=== PATIENT | female | born 1975 | race Caucasian/White ===

== ENCOUNTER 2018-11-17 10:30 | Inpatient (IN) | payer MEDICAID ==
[2018-11-17] MEDS: LACTATED RINGER'S 1,000 ML IV ×2 (11:33→19:49)
[2018-11-17 11:54] LABS: ADD MAN DIFF? NO
[2018-11-17 11:57] LABS: BASOPHILS % 0.4 % (0.0-2.0); EOSINOPHILS # 0.1 10^3/ul (0.0-0.5); EOSINOPHILS % 1.5 % (0.0-7.0); HEMOGLOBIN 12.5 g/dl (12.0-16.0); LYMPHOCYTES # 1.5 10^3/ul (0.8-2.9); LYMPHOCYTES % 19.6 % (15.0-51.0); MEAN CORPUSCULAR HEMOGLOBIN 30.5 pg (29.0-33.0); MEAN CORPUSCULAR HGB CONC 33.8 g/dl (32.0-37.0); MEAN CORPUSCULAR VOLUME 90.2 fl (82.0-101.0); MEAN PLATELET VOLUME 9.1 fl (7.4-10.4); MONOCYTE # 0.5 10^3/ul (0.3-0.9); MONOCYTES % 5.8 % (0.0-11.0); NEUTROPHIL # 5.6 10^3/ul (1.6-7.5); NEUTROPHILS % 72.2 % (39.0-77.0); PLATELET COUNT 293 10^3/UL (140-415); RED CELL DISTRIBUTION WIDTH 13.8 % (11.5-14.5)
[2018-11-17 11:57] LABS: WHITE BLOOD COUNT 7.8 10^3/ul (4.8-10.8)
[2018-11-17 12:00] LABS: ADD UMIC YES; UR ASCORBIC ACID NEGATIVE (NEGATIVE); UR BILIRUBIN (Dip) NEGATIVE (NEGATIVE); UR BLOOD (Dip) 1+ mg/dL (NEGATIVE); UR CLARITY CLEAR (CLEAR); UR COLOR YELLOW (YELLOW); UR GLUCOSE (Dip) NEGATIVE (NEGATIVE); UR KETONES (Dip) NEGATIVE (NEGATIVE); UR LEUKOCYTE ESTERASE (Dip) NEGATIVE Leu/ul (NEGATIVE); UR NITRITE (Dip) NEGATIVE (NEGATIVE); UR RBC 1 /HPF (0-5); UR SPECIFIC GRAVITY (Dip) 1.018 (1.003-1.030); UR TOTAL PROTEIN (Dip) NEGATIVE (NEGATIVE); UR UROBILINOGEN (Dip) NEGATIVE (NEGATIVE); UR WBC 1 /HPF (0-5)
[2018-11-17] MEDS: MAGNESIUM SULFATE 4 GM/100 ML 100 ML IV (12:05)
[2018-11-17 12:17] LABS: ALANINE AMINOTRANSFERASE 18 IU/L (13-69); ALBUMIN 3.4 g/dl (3.3-4.9); ALKALINE PHOSPHATASE 75 IU/L (42-121); ANION GAP 7 (5-13); ASPARTATE AMINO TRANSFERASE 17 IU/L (15-46); BILIRUBIN,INDIRECT 0.3 mg/dl (0-1.1); BILIRUBIN,TOTAL 0.3 mg/dl (0.2-1.3); BLOOD UREA NITROGEN 9 mg/dl (7-20); CALCIUM 8.6 mg/dl (8.4-10.2); CARBON DIOXIDE 21 mmol/L (21-31); CHLORIDE 109 mmol/L (97-110); CREATININE 0.38 mg/dl (0.44-1.00); Estimated GFR > 60 mL/min (>60); GLUCOSE 85 mg/dl (70-220); POTASSIUM 4.2 mmol/L (3.5-5.1); SODIUM 137 mmol/L (135-144); TOTAL PROTEIN 6.8 g/dl (6.1-8.1); URIC ACID 3.8 mg/dl (3.1-7.9)
[2018-11-17] MEDS: MAGNESIUM SULFATE 20 GM/500 ML 500 ML IV ×2 (12:26→22:31)
[2018-11-17] MEDS: BETAMET NA PHOS/AC(6 MG/ML) 2 ML INJ SYG IM (12:27)
[2018-11-17] MEDS: LABETALOL HCL 20MG INJ IV (12:43)
[2018-11-17 12:56] LABS: INR 0.96; PROTIME 12.9 Sec (11.9-14.9)
[2018-11-17 12:57] LABS: PARTIAL THROMBOPLASTIN TIME 29.4 Sec (23.0-35.0)
[2018-11-17] MEDS ORDERED: LABETALOL HCL 20MG INJ IV ×2 (13:00)
[2018-11-17] MEDS ORDERED: hydrALAzine 20 MG INJ IV (13:00)
[2018-11-17 19:38] LABS: MAGNESIUM 5.2 mg/dl (1.7-2.5)
[2018-11-17] MEDS: INDOMETHACIN 50 MG PO (19:47)
[2018-11-17] MEDS: ACETAMINOPHEN 500 MG TAB PO (20:43)
[2018-11-17] MEDS: LABETALOL 100 MG TAB PO (21:01)
[2018-11-17] MEDS: INDOMETHACIN 25 MG PO (23:59)
[2018-11-18] MEDS: INDOMETHACIN 25 MG PO ×4 (05:51→23:35)
[2018-11-18 05:56] LABS: ADD MAN DIFF? NO
[2018-11-18 06:00] LABS: BASOPHILS % 0.2 % (0.0-2.0); HEMATOCRIT 34.9 % (37.0-47.0); HEMOGLOBIN 11.8 g/dl (12.0-16.0); LYMPHOCYTES # 1.3 10^3/ul (0.8-2.9); LYMPHOCYTES % 13.6 % (15.0-51.0); MEAN CORPUSCULAR HEMOGLOBIN 30.5 pg (29.0-33.0); MEAN CORPUSCULAR HGB CONC 33.8 g/dl (32.0-37.0); MEAN CORPUSCULAR VOLUME 90.2 fl (82.0-101.0); MONOCYTE # 0.5 10^3/ul (0.3-0.9); MONOCYTES % 4.9 % (0.0-11.0); NEUTROPHIL # 7.5 10^3/ul (1.6-7.5); NEUTROPHILS % 80.4 % (39.0-77.0); PLATELET COUNT 280 10^3/UL (140-415); RED BLOOD COUNT 3.87 10^6/ul (4.20-5.40); RED CELL DISTRIBUTION WIDTH 13.8 % (11.5-14.5)
[2018-11-18 06:00] LABS: WHITE BLOOD COUNT 9.3 10^3/ul (4.8-10.8)
[2018-11-18 06:28] LABS: ALANINE AMINOTRANSFERASE 15 IU/L (13-69); ALBUMIN 3.4 g/dl (3.3-4.9); ALBUMIN/GLOBULIN RATIO 1.13; ALKALINE PHOSPHATASE 84 IU/L (42-121); ANION GAP 8 (5-13); ASPARTATE AMINO TRANSFERASE 19 IU/L (15-46); BILIRUBIN,INDIRECT 0.4 mg/dl (0-1.1); BILIRUBIN,TOTAL 0.4 mg/dl (0.2-1.3); BLOOD UREA NITROGEN 8 mg/dl (7-20); CALCIUM 6.7 mg/dl (8.4-10.2); CARBON DIOXIDE 20 mmol/L (21-31); CHLORIDE 104 mmol/L (97-110); CREATININE 0.39 mg/dl (0.44-1.00); Estimated GFR > 60 mL/min (>60); GLUCOSE 147 mg/dl (70-220); POTASSIUM 4.3 mmol/L (3.5-5.1); SODIUM 132 mmol/L (135-144); TOTAL PROTEIN 6.4 g/dl (6.1-8.1); URIC ACID 3.8 mg/dl (3.1-7.9)
[2018-11-18 06:30] LABS: MAGNESIUM 6.4 mg/dl (1.7-2.5)
[2018-11-18] MEDS: LABETALOL 100 MG TAB PO ×3 (08:06→21:07)
[2018-11-18] MEDS: PRENATAL VITAMIN PO (08:06)
[2018-11-18] MEDS: MAGNESIUM SULFATE 20 GM/500 ML 500 ML IV ×2 (08:09→17:33)
[2018-11-18] MEDS: LACTATED RINGER'S 1,000 ML IV ×2 (08:10→21:08)
[2018-11-18] MEDS: BETAMET NA PHOS/AC(6 MG/ML) 2 ML INJ SYG IM (12:21)
[2018-11-18 12:33] LABS: MAGNESIUM 6.3 mg/dl (1.7-2.5)
[2018-11-18 13:09] LABS: COLLECTION PERIOD 24 hrs
[2018-11-18 13:40] LABS: CREATININE,URINE RANDOM 41.23 mg/dl (20-320)
[2018-11-18 13:41] LABS: COLLECTION PERIOD 24 hrs; VOLUME 2500 ml/24hrs; VOLUME 2500 mls
[2018-11-18 13:48] LABS: CREATININE CLEARANCE 183.5 mls/min (84.0-162.0); SCRET 0.39 mg/dl (0.44-1.00)
[2018-11-18 15:10] LABS: RAPID PLASMA REAGIN NONREACTIVE (NR)
[2018-11-18 19:02] LABS: MAGNESIUM 5.8 mg/dl (1.7-2.5)
[2018-11-19 01:12] LABS: MAGNESIUM 6.1 mg/dl (1.7-2.5)
[2018-11-19] MEDS: MAGNESIUM SULFATE 20 GM/500 ML 500 ML IV (03:38)
[2018-11-19] MEDS: INDOMETHACIN 25 MG PO ×3 (06:01→20:02)
[2018-11-19 09:16] LABS: MAGNESIUM 6.2 mg/dl (1.7-2.5)
[2018-11-19] MEDS: LABETALOL 100 MG TAB PO ×2 (09:47→21:05)
[2018-11-19] MEDS: PRENATAL VITAMIN PO (09:47)
[2018-11-19] MEDS: LACTATED RINGER'S 1,000 ML IV ×2 (10:46→18:49)
[2018-11-20] MEDS: INDOMETHACIN 25 MG PO ×4 (01:21→18:13)
[2018-11-20] MEDS: LACTATED RINGER'S 1,000 ML IV ×3 (04:34→21:30)
[2018-11-20] MEDS: PRENATAL VITAMIN PO (08:51)
[2018-11-20] MEDS: LABETALOL 100 MG TAB PO ×2 (08:51→21:36)
[2018-11-20] MEDS: NIFEdipine 10 MG CAP PO ×2 (16:08→20:12)
[2018-11-20] MEDS: AL HYDROX/MG HYDROX/SIMETH 30 ML CUP PO (20:12)
[2018-11-21] MEDS: INDOMETHACIN 25 MG PO ×3 (00:02→12:09)
[2018-11-21] MEDS: NIFEdipine 10 MG CAP PO ×4 (01:10→17:38)
[2018-11-21] MEDS: LACTATED RINGER'S 1,000 ML IV ×2 (06:01→17:38)
[2018-11-21] MEDS: PRENATAL VITAMIN PO (08:40)
[2018-11-21] MEDS: LABETALOL 100 MG TAB PO ×2 (08:41→21:07)
[2018-11-22] MEDS: NIFEdipine 10 MG CAP PO ×5 (00:15→23:55)
[2018-11-22] MEDS: LACTATED RINGER'S 1,000 ML IV ×2 (02:31→05:30)
[2018-11-22] MEDS: PRENATAL VITAMIN PO (09:25)
[2018-11-22] MEDS: LABETALOL 100 MG TAB PO ×2 (09:25→21:33)
[2018-11-22] MEDS: AL HYDROX/MG HYDROX/SIMETH 30 ML CUP PO (20:16)
[2018-11-23] MEDS: AL HYDROX/MG HYDROX/SIMETH 30 ML CUP PO (00:52)
[2018-11-23] MEDS: NIFEdipine 10 MG CAP PO ×4 (05:58→23:33)
[2018-11-23] MEDS: PRENATAL VITAMIN PO (10:17)
[2018-11-23] MEDS: LABETALOL 100 MG TAB PO ×2 (10:18→21:25)
[2018-11-23] MEDS: FAMOTIDINE 20 MG TAB PO (11:08)
[2018-11-24] MEDS: NIFEdipine 10 MG CAP PO ×3 (05:18→17:52)
[2018-11-24 08:19] LABS: ADD MAN DIFF? NO
[2018-11-24 08:24] LABS: BASOPHIL # 0.1 10^3/ul (0.0-0.1); BASOPHILS % 0.5 % (0.0-2.0); EOSINOPHILS # 0.2 10^3/ul (0.0-0.5); EOSINOPHILS % 1.7 % (0.0-7.0); HEMATOCRIT 34.6 % (37.0-47.0); HEMOGLOBIN 11.6 g/dl (12.0-16.0); LYMPHOCYTES # 2.5 10^3/ul (0.8-2.9); LYMPHOCYTES % 27.2 % (15.0-51.0); MEAN CORPUSCULAR HEMOGLOBIN 30.9 pg (29.0-33.0); MEAN CORPUSCULAR HGB CONC 33.5 g/dl (32.0-37.0); MEAN CORPUSCULAR VOLUME 92.3 fl (82.0-101.0); MEAN PLATELET VOLUME 9.2 fl (7.4-10.4); MONOCYTE # 0.7 10^3/ul (0.3-0.9); MONOCYTES % 7.3 % (0.0-11.0); NEUTROPHIL # 5.7 10^3/ul (1.6-7.5); NEUTROPHILS % 62.3 % (39.0-77.0); PLATELET COUNT 290 10^3/UL (140-415); RED BLOOD COUNT 3.75 10^6/ul (4.20-5.40); RED CELL DISTRIBUTION WIDTH 13.8 % (11.5-14.5)
[2018-11-24 08:24] LABS: WHITE BLOOD COUNT 9.2 10^3/ul (4.8-10.8)
[2018-11-24 08:52] LABS: ALANINE AMINOTRANSFERASE 21 IU/L (13-69); ALBUMIN 3.2 g/dl (3.3-4.9); ALKALINE PHOSPHATASE 82 IU/L (42-121); ANION GAP 6 (5-13); ASPARTATE AMINO TRANSFERASE 18 IU/L (15-46); BILIRUBIN,INDIRECT 0.3 mg/dl (0-1.1); BILIRUBIN,TOTAL 0.3 mg/dl (0.2-1.3); BLOOD UREA NITROGEN 7 mg/dl (7-20); CALCIUM 8.5 mg/dl (8.4-10.2); CARBON DIOXIDE 23 mmol/L (21-31); CHLORIDE 106 mmol/L (97-110); CREATININE 0.44 mg/dl (0.44-1.00); Estimated GFR > 60 mL/min (>60); GLUCOSE 85 mg/dl (70-220); POTASSIUM 4.1 mmol/L (3.5-5.1); SODIUM 135 mmol/L (135-144); TOTAL PROTEIN 6.1 g/dl (6.1-8.1)
[2018-11-24] MEDS: LABETALOL 100 MG TAB PO (09:39)
[2018-11-24] MEDS: PRENATAL VITAMIN PO (09:39)
[2018-11-24] MEDS: FAMOTIDINE 20 MG TAB PO (09:39)
== END 2018-11-24 19:55 | disposition home or self-care (01) | DRG 832 ==
LOC: OBT 10:30 → PP1 11-19 23:02 → L-D 10:35 → OBT 11:10 → L-D 11:10
DX: O47.02 False labor before 37 completed weeks of gestation, second trimester (principal); O10.912 Unspecified pre-existing hypertension complicating pregnancy, second trimester; Z3A.25 25 weeks gestation of pregnancy
CPT/HCPCS: 76815; 76817; 80053; 81001; 82575; 83735; 84156; 84560; 85025; 85384; 85610; 85730; 86592; 86850; 86900; 86901; 93005; 93306

== ENCOUNTER 2018-11-27 11:21 | Inpatient (IN) | payer MEDICAID ==
[2018-11-27] MEDS ORDERED: LACTATED RINGER'S 1,000 ML IV (11:57)
[2018-11-27] MEDS ORDERED: IBUPROFEN 600 MG TAB PO (12:00)
[2018-11-27] MEDS ORDERED: METHYLERGONOVINE 0.2 MG INJ IM (12:00)
[2018-11-27] MEDS ORDERED: LIDOCAINE 1% (MPF) 30 ML INJ INJ (12:00)
[2018-11-27] MEDS ORDERED: NACL 0.9% 3 ML SYG IV (12:00)
[2018-11-27] MEDS ORDERED: CA GLUCONATE (GM) 10% 10ML INJ IV (12:00)
[2018-11-27] MEDS ORDERED: LABETALOL HCL 20MG INJ IV ×2 (12:00)
[2018-11-27] MEDS ORDERED: BUTORPHANOL 2 MG INJ IV (12:00)
[2018-11-27] MEDS ORDERED: OXYTOCIN 30 UNITS/LR 500 ML IV ×4 (12:00→17:00)
[2018-11-27] MEDS: LABETALOL HCL 20MG INJ IV (12:00)
[2018-11-27] MEDS ORDERED: CARBOPROST 250 MCG INJ IM ×2 (12:00→17:00)
[2018-11-27] MEDS ORDERED: MISOPROSTOL 200 MCG TAB PR ×2 (12:00→17:00)
[2018-11-27] MEDS ORDERED: hydrALAzine 20 MG INJ IV (12:00)
[2018-11-27] MEDS ORDERED: AMPICILLIN 2 GM/NS (PMX) 100 ML (12:04)
[2018-11-27] MEDS ORDERED: LABETALOL HCL 20MG INJ (12:05)
[2018-11-27] MEDS ORDERED: MAGNESIUM SULFATE 4 GM/100 ML 100 ML (12:06)
[2018-11-27] MEDS ORDERED: PHENYLephrine (100 MCG/ML) 10ML SYG (12:18)
[2018-11-27] MEDS ORDERED: FENTAnyl 50 MCG/ML VIAL (12:18)
[2018-11-27] MEDS ORDERED: OXYTOCIN 30 UNITS/LR 500 ML BAG IV (12:18)
[2018-11-27] MEDS: AMPICILLIN 2 GM/NS (PMX) 100 ML IV (12:30)
[2018-11-27] MEDS ORDERED: SUCCINYLCHOLINE CHLORIDE 100 MG/5 ML SYG IV (12:50)
[2018-11-27] MEDS ORDERED: SUGAMMADEX SODIUM 200 MG/2 ML VIAL IV (12:50)
[2018-11-27] MEDS ORDERED: ROCURONIUM 50 MG INJ (12:50)
[2018-11-27] MEDS ORDERED: PROPOFOL 20 ML (12:50)
[2018-11-27] MEDS ORDERED: CEFAZOLIN 1 GM INJ (12:50)
[2018-11-27 13:10] LABS: ADD MAN DIFF? NO
[2018-11-27 13:13] LABS: BASOPHILS % 0.4 % (0.0-2.0); EOSINOPHILS # 0.1 10^3/ul (0.0-0.5); HEMATOCRIT 36.9 % (37.0-47.0); HEMOGLOBIN 12.2 g/dl (12.0-16.0); LYMPHOCYTES # 1.8 10^3/ul (0.8-2.9); LYMPHOCYTES % 16.4 % (15.0-51.0); MEAN CORPUSCULAR HEMOGLOBIN 30.3 pg (29.0-33.0); MEAN CORPUSCULAR HGB CONC 33.1 g/dl (32.0-37.0); MEAN CORPUSCULAR VOLUME 91.8 fl (82.0-101.0); MEAN PLATELET VOLUME 9.3 fl (7.4-10.4); MONOCYTE # 0.6 10^3/ul (0.3-0.9); MONOCYTES % 5.4 % (0.0-11.0); NEUTROPHIL # 8.4 10^3/ul (1.6-7.5); NEUTROPHILS % 75.8 % (39.0-77.0); PLATELET COUNT 322 10^3/UL (140-415); RED BLOOD COUNT 4.02 10^6/ul (4.20-5.40); RED CELL DISTRIBUTION WIDTH 13.6 % (11.5-14.5)
[2018-11-27 13:13] LABS: WHITE BLOOD COUNT 11.1 10^3/ul (4.8-10.8)
[2018-11-27] MEDS ORDERED: KETOROLAC 30 MG INJ IV (13:30)
[2018-11-27] MEDS ORDERED: HYDROmorphONE 1 MG/5 ML IV SYRINGE IV ×3 (13:30)
[2018-11-27] MEDS ORDERED: METOCLOPRAMIDE 10 MG INJ IV (13:30)
[2018-11-27] MEDS ORDERED: ZOLPIDEM 5 MG TAB PO (13:30)
[2018-11-27] MEDS ORDERED: MEPERIDINE 25 MG INJ IV (13:30)
[2018-11-27] MEDS ORDERED: HYDROmorphONE 0.5 MG/0.5 ML SYG IV (13:30)
[2018-11-27] MEDS ORDERED: FENTAnyl 50 MCG/ML VIAL IV ×2 (13:30)
[2018-11-27] MEDS ORDERED: NALOXONE (0.4 MG/ML) INJ IV (13:30)
[2018-11-27] MEDS ORDERED: ALBUTEROL 0.083% (NEB) 2.5 MG/3 ML AMP HHN (13:30)
[2018-11-27] MEDS ORDERED: ONDANSETRON 4 MG INJ IV ×2 (13:30)
[2018-11-27] MEDS ORDERED: DIPHENHYDRAMINE 50 MG INJ IV ×2 (13:30)
[2018-11-27] MEDS: HYDROmorphONE 0.5 MG/0.5 ML SYG IV ×2 (13:37→15:12)
[2018-11-27 13:46] LABS: ALANINE AMINOTRANSFERASE 17 IU/L (13-69); ALBUMIN 3.5 g/dl (3.3-4.9); ALKALINE PHOSPHATASE 90 IU/L (42-121); ANION GAP 12 (5-13); ASPARTATE AMINO TRANSFERASE 24 IU/L (15-46); BILIRUBIN,INDIRECT 0.3 mg/dl (0-1.1); BILIRUBIN,TOTAL 0.3 mg/dl (0.2-1.3); BLOOD UREA NITROGEN 8 mg/dl (7-20); CALCIUM 9.6 mg/dl (8.4-10.2); CARBON DIOXIDE 20 mmol/L (21-31); CHLORIDE 107 mmol/L (97-110); CREATININE 0.42 mg/dl (0.44-1.00); GLUCOSE 119 mg/dl (70-220); LACTATE DEHYDROGENASE 335 IU/L (313-618); PHOSPHORUS 3.8 mg/dl (2.5-4.9); POTASSIUM 4.1 mmol/L (3.5-5.1); SODIUM 139 mmol/L (135-144); TOTAL PROTEIN 6.6 g/dl (6.1-8.1)
[2018-11-27 13:47] LABS: URIC ACID 3.8 mg/dl (3.1-7.9)
[2018-11-27 13:48] LABS: INR 0.91; PARTIAL THROMBOPLASTIN TIME 29.9 Sec (23.0-35.0); PROTIME 12.4 Sec (11.9-14.9)
[2018-11-27] MEDS: MAGNESIUM SULFATE 4 GM/100 ML 100 ML IV (13:59)
[2018-11-27 14:17] LABS: HEPATITIS B SURFACE ANTIGEN NEGATIVE (NEGATIVE)
[2018-11-27] MEDS: MAGNESIUM SULFATE 20 GM/500 ML 500 ML IV ×2 (14:28→22:00)
[2018-11-27] MEDS: FENTAnyl 50 MCG/ML VIAL IV (15:53)
[2018-11-27] MEDS ORDERED: AMPICILLIN 1 GM/NS (PMX) 50 ML IV (16:30)
[2018-11-27] MEDS: OXYTOCIN 30 UNITS/LR 500 ML IV (16:43)
[2018-11-27] MEDS: LACTATED RINGER'S 1,000 ML IV ×2 (16:43→18:47)
[2018-11-27] MEDS ORDERED: LANOLIN HPA 1 PKT TOP (17:00)
[2018-11-27] MEDS ORDERED: OXYCODONE/ACETAMINOPHEN (5/325) TAB PO (17:00)
[2018-11-27] MEDS: KETOROLAC 30 MG INJ IV (20:34)
[2018-11-27 20:48] LABS: RAPID PLASMA REAGIN NONREACTIVE (NR)
[2018-11-27] MEDS: SENNA/DOCUSATE NA (8.6MG/50MG) TAB PO (20:49)
[2018-11-27] MEDS: IBUPROFEN 800 MG TAB PO (22:00)
[2018-11-28] MEDS: MAGNESIUM SULFATE 20 GM/500 ML 500 ML IV ×2 (00:38→10:31)
[2018-11-28 01:25] LABS: MAGNESIUM 5.4 mg/dl (1.7-2.5)
[2018-11-28] MEDS: KETOROLAC 30 MG INJ IV ×2 (02:40→08:27)
[2018-11-28] MEDS: LACTATED RINGER'S 1,000 ML IV ×2 (03:59→08:28)
[2018-11-28] MEDS: IBUPROFEN 800 MG TAB PO ×3 (06:00→21:42)
[2018-11-28 07:46] LABS: ADD MAN DIFF? NO
[2018-11-28 07:52] LABS: BASOPHILS % 0.2 % (0.0-2.0); EOSINOPHILS # 0.1 10^3/ul (0.0-0.5); EOSINOPHILS % 0.5 % (0.0-7.0); HEMATOCRIT 29.4 % (37.0-47.0); HEMOGLOBIN 9.9 g/dl (12.0-16.0); LYMPHOCYTES # 1.7 10^3/ul (0.8-2.9); MEAN CORPUSCULAR HEMOGLOBIN 30.8 pg (29.0-33.0); MEAN CORPUSCULAR HGB CONC 33.7 g/dl (32.0-37.0); MEAN CORPUSCULAR VOLUME 91.6 fl (82.0-101.0); MONOCYTE # 0.7 10^3/ul (0.3-0.9); MONOCYTES % 5.4 % (0.0-11.0); NEUTROPHIL # 9.7 10^3/ul (1.6-7.5); NEUTROPHILS % 79.4 % (39.0-77.0); PLATELET COUNT 265 10^3/UL (140-415); RED BLOOD COUNT 3.21 10^6/ul (4.20-5.40); RED CELL DISTRIBUTION WIDTH 13.6 % (11.5-14.5)
[2018-11-28 07:52] LABS: WHITE BLOOD COUNT 12.2 10^3/ul (4.8-10.8)
[2018-11-28 08:19] LABS: MAGNESIUM 5.7 mg/dl (1.7-2.5)
[2018-11-28] MEDS: SENNA/DOCUSATE NA (8.6MG/50MG) TAB PO ×2 (08:27→21:06)
[2018-11-28] MEDS ORDERED: PETROLATUM 5 GM OINT TOP (11:45)
[2018-11-28 12:45] LABS: MAGNESIUM 6.3 mg/dl (1.7-2.5)
[2018-11-28] MEDS: OXYCODONE/ACETAMINOPHEN (5/325) TAB PO ×2 (13:51→18:05)
[2018-11-29] MEDS: IBUPROFEN 800 MG TAB PO ×3 (06:07→22:13)
[2018-11-29] MEDS: SENNA/DOCUSATE NA (8.6MG/50MG) TAB PO ×2 (08:57→20:44)
[2018-11-29] MEDS: OXYCODONE/ACETAMINOPHEN (5/325) TAB PO ×2 (08:57→20:50)
[2018-11-30] MEDS: IBUPROFEN 800 MG TAB PO (05:57)
[2018-11-30] MEDS: SENNA/DOCUSATE NA (8.6MG/50MG) TAB PO (08:53)
[2018-11-30] MEDS: DIPHTH/TET/ACEL PERTUSS (ADULT) 0.5 ML VIAL IM* (10:42)
== END 2018-11-30 12:55 | disposition home or self-care (01) | DRG 786 ==
LOC: OBT 11:21 → L-D 11:23 → OBT 11:43 → L-D 11:44 → PP1 16:22
PROVIDERS: Obstetrics & Gynecology
PROC: 10D00Z1 Extraction of Products of Conception, Low, Open Approach (ICD-10-PCS; principal; 2018-11-27 12:00)
DX: O60.12X0 Preterm labor second trimester with preterm delivery second trimester, not applicable or unspecified (principal); O45.92 Premature separation of placenta, unspecified, second trimester; O36.4XX0 Maternal care for intrauterine death, not applicable or unspecified; O10.92 Unspecified pre-existing hypertension complicating childbirth; O40.2XX0 Polyhydramnios, second trimester, not applicable or unspecified; O76 Abnormality in fetal heart rate and rhythm complicating labor and delivery; O35.1XX0 Maternal care for (suspected) chromosomal abnormality in fetus, not applicable or unspecified; O32.2XX0 Maternal care for transverse and oblique lie, not applicable or unspecified; O32.8XX0 Maternal care for other malpresentation of fetus, not applicable or unspecified; Z3A.26 26 weeks gestation of pregnancy; Z37.1 Single stillbirth; Z23 Encounter for immunization
CPT/HCPCS: 74018; 76815; 80069; 80076; 83615; 83735; 84560; 85025; 85384; 85610; 85730; 86592; 86850; 86900; 86901; 87340; 88307; 90715; 99464